=== PATIENT | male | born 1990 | race Caucasian/White ===

== ENCOUNTER 2022-10-22 11:59 | Inpatient (IN) | payer OTHER ==
[~2022-10-22 11:59] MED LIST: Iopamidol 300 61% 100 ML VIAL FS ONE
[2022-10-22 12:44] LABS: #Basophils 0.1 10x3/uL (0.0-0.2); #Monocytes 0.9 10x3/uL (0.0-1.1); #Neutrophils 11.3 10x3/uL (1.5-8.4); %Basophils 0.4 % (0.0-2.0); %Eosinophils 0.1 % (0.0-6.0); %Lymphocytes 12.4 % (18.0-47.0); %Monocytes 6.6 % (0.0-10.0); %Neutrophils 79.7 % (40.0-75.0); Hemoglobin 18.3 g/dL (13.5-17.5); Mean Corpuscular HGB CONC 35.3 g/dL (32.0-36.0); Mean Corpuscular Hemoglobin 29.5 pg (27.0-33.0); Mean Corpuscular Volume 83.6 fl (81.2-95.1); Mean Platelet Volume 11.1 fl (7.4-10.4); Platelet Count 291 10x3/uL (150-450); RBC Distribution Width 12.3 % (11.5-14.5); Red Blood Cell (RBC) Count 6.21 10x6/uL (4.32-5.72); White Blood Cell (WBC) Count 14.2 10x3/uL (3.5-10.5)
[2022-10-22 12:52] LABS: Lipase 15 U/L (8-78)
[2022-10-22 12:53] LABS: ALT (SGPT) 19 U/L (8-55); AST (SGOT) 14 U/L (5-34); Albumin 5.2 g/dL (3.5-5.0); Alkaline Phosphatase 97 U/L (40-110); BUN (Urea Nitrogen) 18 mg/dL (8.9-20.6); Bilirubin, Total 0.6 mg/dL (0.2-1.2); Calc. Creatinine Clearance 0 mL/min (70-130); Calcium 9.1 mg/dL (7.8-10.44); Chloride 100 mmol/L (98-107); Estimated GFR 49; Globulin 3.3 g/dL (2.4-3.5); Glucose 357 mg/dL (70-105); Phosphorus 4.6 mg/dL (2.3-4.7); Potassium 5.6 mmol/L (3.5-5.1); Protein, Total 8.5 g/dL (6.0-8.3); Sodium 127 mmol/L (136-145)
[2022-10-22 13:13] LABS: Actual Bicarbonate (HCO3v) 7 mEq/L (22-28); Base Excess -24.9 mEq/L (-2 - +2); Carbon Dioxide Less than 8 mmol/L (22-29); Chloride (VBG) 99 mmol/L (98-106); Hemoglobin (Hb) 19.5 g/dL (13.2-17.3); Potassium (VBG) 9.42 mmol/L (3.70-5.30); Puncture Site Other Site; RapidComm Collect By CBN; Sodium 126.7 mmol/L (133-146); pH (venous) 6.95 (7.32-7.43)
[2022-10-22] MEDS ORDERED: Insulin Regular 300 UNITS/3 ML VIAL ONE (14:06)
[2022-10-22] MEDS ORDERED: INSULIN REGULAR IN 0.9 % NACL 100 UNIT/100 ML BAG ONE (14:07)
[2022-10-22] MEDS ORDERED: Sodium Bicarb 50 MEQ/50 ML Abboject 8.4% SYRINGE ONE ×2 (15:02)
[2022-10-22] MEDS ORDERED: HYDROcodone/Acetaminophen 5/325 mg Tablet PO PRN (15:07)
[2022-10-22] MEDS ORDERED: Acetaminophen 325 MG TAB PO PRN (15:07)
[2022-10-22] MEDS ORDERED: Ondansetron PF 4 MG/2 ML Vial IVP PRN (15:07)
[2022-10-22] MEDS ORDERED: Sodium Chloride 0.9% 1,000 ML IV PRN ×4 (15:10)
[2022-10-22] MEDS ORDERED: Electrolyte Replacement Protocol 1 EACH IVPB ONE (15:10)
[2022-10-22] MEDS ORDERED: Dextrose 50% Abboject 50 ML SYRINGE SLOW IVP PRN (15:10)
[2022-10-22] MEDS ORDERED: Dextrose 5 %-0.45 % NaCl 1,000 ML IV PRN (15:10)
[2022-10-22] MEDS ORDERED: NS 0.9% w/ 20 MEQ KCL 1,000 ML IV PRN ×2 (15:10)
[2022-10-22] MEDS ORDERED: Sodium Bicarb 50 MEQ/50 ML VIAL IVP SCH ×2 (15:15→18:00)
[2022-10-22] MEDS ORDERED: INSULIN REGULAR IN 0.9 % NACL 100 UNIT in Premix Bag 1 BAG IVPB SCH (15:30)
[2022-10-22] MEDS ORDERED: Electrolyte Replacement Protocol 1 EACH IVPB SCH (15:30)
[2022-10-22 15:56] LABS: SARS-CoV-2 NAA Rapid Test Not Detected (NotDetected)
[2022-10-22 16:47] LABS: BUN (Urea Nitrogen) 15 mg/dL (8.9-20.6); Calc. Creatinine Clearance 0 mL/min (70-130); Calcium 7.6 mg/dL (7.8-10.44); Carbon Dioxide Less than 8 mmol/L (22-29); Chloride 108 mmol/L (98-107); Estimated GFR 75; Glucose 189 mg/dL (70-105); Potassium 4.2 mmol/L (3.5-5.1); Sodium 133 mmol/L (136-145)
[2022-10-22] MEDS ORDERED: Dextrose 10% in Water 250 ML IVPB PRN (17:34)
[2022-10-22 17:55] VITALS: BMI 19.8
[2022-10-22] MEDS ORDERED: Magnesium 2 GM/50 ML(in water) 2 GM in Premix Bag 1 BAG IVPB SCH (18:00)
[2022-10-22 19:48] LABS: Anion Gap 20 mmol/L (10-20); BUN (Urea Nitrogen) 13 mg/dL (8.9-20.6); Calc. Creatinine Clearance 69 mL/min (70-130); Calcium 7.6 mg/dL (7.8-10.44); Carbon Dioxide 12 mmol/L (22-29); Chloride 107 mmol/L (98-107); Estimated GFR 81; Glucose 216 mg/dL (70-105); Potassium 3.7 mmol/L (3.5-5.1); Sodium 135 mmol/L (136-145)
[2022-10-22] MEDS: D5 1/2 NS w/20 mEq KCL 1,000 ML IV PRN (19:49)
[2022-10-22] MEDS: Heparin 5,000 UNITS/ML VIAL SC SCH (19:54)
[2022-10-22 20:45] LABS: Bilirubin Neg (Negative); Blood, Urine Negative (Negative); Clarity Clear (Clear); Glucose, Urine (Dipstick) >=1000 mg/dL (Negative); Ketone, Urine 150 mg/dL (Negative); Leukocyte Negative (Negative); Nitrite Negative (Negative); Protein, Urine (Dipstick) 15 mg/dl (Neg-Trace); Specific Gravity, Urine 1.015 (1.005-1.030); Urobilinogen Normal mg/dL (Less than 2)
[2022-10-22 20:55] LABS: Bacteria/HPF Rare-Few HPF (None Seen); CAUTI Indications for Culture Dysuria,urgency,freq; RBC/HPF 0-3 HPF (0-3); Squamous Epithelial 0-3 HPF (0-3); WBC/HPF 0-3 HPF (0-3)
[2022-10-22 20:56] LABS: Urine Culture Reflex No No
[2022-10-22 23:38] LABS: Anion Gap 11 mmol/L (10-20); BUN (Urea Nitrogen) 12 mg/dL (8.9-20.6); Calc. Creatinine Clearance 79 mL/min (70-130); Calcium 7.6 mg/dL (7.8-10.44); Carbon Dioxide 17 mmol/L (22-29); Chloride 109 mmol/L (98-107); Estimated GFR 96; Glucose 170 mg/dL (70-105); Potassium 3.4 mmol/L (3.5-5.1); Sodium 134 mmol/L (136-145)
[2022-10-23] MEDS ORDERED: Potassium Chloride 20 MEQ in Premix Bag 1 BAG IVPB SCH ×2 (00:30→05:00)
[2022-10-23] MEDS: D5 1/2 NS w/20 mEq KCL 1,000 ML IV PRN ×2 (01:17→05:11)
[2022-10-23 03:53] LABS: Anion Gap 10 mmol/L (10-20); BUN (Urea Nitrogen) 10 mg/dL (8.9-20.6); Calc. Creatinine Clearance 96 mL/min (70-130); Calcium 7.5 mg/dL (7.8-10.44); Carbon Dioxide 16 mmol/L (22-29); Chloride 111 mmol/L (98-107); Estimated GFR 117; Glucose 150 mg/dL (70-105); Magnesium 2.3 mg/dL (1.6-2.6); Potassium 3.2 mmol/L (3.5-5.1); Sodium 134 mmol/L (136-145)
[2022-10-23 04:23] LABS: Phosphorus Less than 1.0 mg/dL (2.3-4.7)
[2022-10-23] MEDS ORDERED: Potassium Phosphate 30 MMOL in Sodium Chloride 0.9% 250 ML 250 ML IVPB SCH ×2 (05:30→12:45)
[2022-10-23] MEDS: Heparin 5,000 UNITS/ML VIAL SC SCH ×2 (08:30→20:19)
[2022-10-23] MEDS ORDERED: HumaLOG 300 UNITS/3 ML VIAL SC PRN (10:34)
[2022-10-23] MEDS ORDERED: Dextrose 5% in Water 1,000 ML IV PRN (10:34)
[2022-10-23] MEDS ORDERED: Dextrose 50% Abboject 50 ML SYRINGE SLOW IVP PRN (10:34)
[2022-10-23] MEDS ORDERED: Lantus 1000 UNITS/10 ML VIAL SC SCH (10:45)
[2022-10-23] MEDS ORDERED: Sodium Chloride 0.9% 1,000 ML IV SCH ×2 (10:45→16:57)
[2022-10-23 12:12] LABS: Potassium 3.3 mmol/L (3.5-5.1)
[2022-10-23 12:22] LABS: Phosphorus Less than 1.0 mg/dL (2.3-4.7)
[2022-10-23] MEDS: HumaLOG 300 UNITS/3 ML VIAL SC PRN ×3 (12:28→20:20)
[2022-10-23 13:18] LABS: Hemoglobin A1c 11.8 % (4.0-6.0)
[2022-10-23 21:59] LABS: Phosphorus 1.5 mg/dL (2.3-4.7); Potassium 3.1 mmol/L (3.5-5.1)
[2022-10-23] MEDS ORDERED: Potassium Phosphate 22 MMOL in Sodium Chloride 0.9% 250 ML 250 ML IVPB SCH (22:30)
[2022-10-24 04:15] LABS: Anion Gap 11 mmol/L (10-20); BUN (Urea Nitrogen) 6 mg/dL (8.9-20.6); Calc. Creatinine Clearance 128 mL/min (70-130); Calcium 7.9 mg/dL (7.8-10.44); Carbon Dioxide 24 mmol/L (22-29); Chloride 112 mmol/L (98-107); Estimated GFR 128; Glucose 95 mg/dL (70-105); Magnesium 1.9 mg/dL (1.6-2.6); Potassium 3.1 mmol/L (3.5-5.1); Sodium 144 mmol/L (136-145)
[2022-10-24 04:19] LABS: Phosphorus 3.3 mg/dL (2.3-4.7)
[2022-10-24 04:37] LABS: #Eosinphils 0.2 10x3/uL (0.0-0.5); #Monocytes 0.5 10x3/uL (0.0-1.1); #Neutrophils 1.7 10x3/uL (1.5-8.4); %Basophils 0.4 % (0.0-2.0); %Eosinophils 3.3 % (0.0-6.0); %Lymphocytes 46.7 % (18.0-47.0); %Monocytes 11.5 % (0.0-10.0); %Neutrophils 38.1 % (40.0-75.0); Hemoglobin 12.9 g/dL (13.5-17.5); Mean Corpuscular HGB CONC 36.2 g/dL (32.0-36.0); Mean Corpuscular Hemoglobin 28.9 pg (27.0-33.0); Mean Corpuscular Volume 79.6 fl (81.2-95.1); Mean Platelet Volume 11.2 fl (7.4-10.4); Platelet Count 138 10x3/uL (150-450); RBC Distribution Width 12.6 % (11.5-14.5); Red Blood Cell (RBC) Count 4.47 10x6/uL (4.32-5.72); White Blood Cell (WBC) Count 4.6 10x3/uL (3.5-10.5)
[2022-10-24] MEDS ORDERED: Potassium Chloride 20 MEQ TAB PO SCH (05:30)
[2022-10-24] MEDS ORDERED: Magnesium 2 GM/50 ML(in water) 2 GM in Premix Bag 1 BAG IVPB SCH (05:30)
[2022-10-24] MEDS: Heparin 5,000 UNITS/ML VIAL SC SCH (08:02)
[2022-10-24] MEDS ORDERED: Lantus 1000 UNITS/10 ML VIAL SC SCH (09:00)
[2022-10-24 10:18] VITALS: BP 132/76; TEMP 98.6
[2022-10-24 11:06] LABS: Potassium 3.7 mmol/L (3.5-5.1)
[2022-10-24] MEDS: HumaLOG 300 UNITS/3 ML VIAL SC PRN (11:47)
== END 2022-10-24 12:38 | disposition home or self-care (01) | DRG 637 ==
LOC: CSHERS 11:59 → CSHICU 16:30
PROVIDERS: ADMIT Family Medicine; ATTEND Internal Medicine
PROC: 4A033R1 Measurement of Arterial Saturation, Peripheral, Percutaneous Approach (ICD-10-PCS; principal; 2022-10-22)
DX: E10.10 Type 1 diabetes mellitus with ketoacidosis without coma (principal); R65.11 Systemic inflammatory response syndrome (SIRS) of non-infectious origin with acute organ dysfunction; N17.9 Acute kidney failure, unspecified; E87.1 Hypo-osmolality and hyponatremia; Z20.822 Contact with and (suspected) exposure to COVID-19; E87.5 Hyperkalemia; Z88.1 Allergy status to other antibiotic agents; Z83.3 Family history of diabetes mellitus
CPT/HCPCS: 36415; 36416; 71045; 74177; 80048; 80053; 81001; 82010; 82805; 83036; 83690; 83735; 84100; 85025; 87040; 93005; 94760; 94762; 96361; 96365; 96366; 96376; J1644; J1815; J3475; J3480; J7042; J7050; J7999; Q9967